=== PATIENT | male | born 1990 | race African-American/Black ===

== ENCOUNTER 2017-10-14 10:54 | Emergency (ER) | payer SELFPAY ==
[~2017-10-14] VITALS: Ht 182.9 cm; Wt 84.0 kg
[2017-10-14] MEDS ORDERED: HYDROCORTISONE 1% 1.5 GM CREAM TP ONE (12:15)
[2017-10-14] MEDS ORDERED: PredniSONE 20 MG TABLET PO ONE (12:15)
[2017-10-14] MEDS ORDERED: DiphenhydrAMINE HCL 25 MG CAPSULE PO ONE (12:15)
[2017-10-14 13:11] VITALS: BP 122/87
== END 2017-10-14 13:13 | disposition home or self-care (01) ==
LOC: EMS 10:54
DX: R21 Rash and other nonspecific skin eruption (principal); L29.9 Pruritus, unspecified; F17.210 Nicotine dependence, cigarettes, uncomplicated; Z88.0 Allergy status to penicillin; Z88.2 Allergy status to sulfonamides; Z76.0 Encounter for issue of repeat prescription
CPT/HCPCS: 99284; 99406; J7512

== ENCOUNTER 2017-10-28 10:59 | Emergency (ER) | payer MEDICAID ==
[~2017-10-28] VITALS: Ht 182.9 cm; Wt 84.1 kg
[2017-10-28] MEDS ORDERED: DiphenhydrAMINE HCL 25 MG CAPSULE PO ONE (12:00)
[2017-10-28] MEDS ORDERED: PredniSONE 20 MG TABLET PO ONE (12:00)
[2017-10-28 12:14] VITALS: BP 124/83
== END 2017-10-28 12:20 | disposition home or self-care (01) ==
LOC: EMS 11:00
DX: T78.40XA Allergy, unspecified, initial encounter (principal); F17.210 Nicotine dependence, cigarettes, uncomplicated; Z88.0 Allergy status to penicillin; Z88.2 Allergy status to sulfonamides; X58.XXXA Exposure to other specified factors, initial encounter
CPT/HCPCS: 99283; 99406; J7512

== ENCOUNTER 2017-12-08 08:40 | Emergency (ER) | payer MEDICAID | END 2017-12-08 09:22 | disposition left against medical advice (07) | LOC: EMS 08:42 | DX: L98.8 Other specified disorders of the skin and subcutaneous tissue (principal); Z53.21 Procedure and treatment not carried out due to patient leaving prior to being seen by health care provider ==